=== PATIENT | female | born 1960 | race Two or more races ===

== ENCOUNTER 2017-12-10 08:27 | Outpatient (CLI) | payer OTHER | END 2017-12-10 08:35 | disposition home or self-care (01) | LOC: SONOGRAMA 08:27 | DX: E04.1 Nontoxic single thyroid nodule (principal) ==

== ENCOUNTER 2017-12-14 07:26 | Outpatient (CLI) | payer OTHER | END 2017-12-14 07:40 | disposition home or self-care (01) | LOC: SONOGRAMA 07:26 | DX: M06.842 Other specified rheumatoid arthritis, left hand (principal); M06.841 Other specified rheumatoid arthritis, right hand ==